=== PATIENT | female | born 1990 | race Caucasian/White ===

== ENCOUNTER 2016-06-05 20:59 | Inpatient (IN) | payer BC ==
[~2016-06-05] VITALS: Ht 162.6 cm; Wt 103.4 kg
[~2016-06-05 20:59] MED LIST: DICY10CA26 PO; KETO-22 PO; ONDAN4ODT PO
--- OUTSIDE RECORDS SUMMARY | 2016-06-05 21:03 | XMS REPORT ---
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
[2016-06-05 21:10] VITALS: BP 119/66
[2016-06-05] MEDS: D5 LR IV SOLUTION 1,000 ML IV SCH (22:11)
[2016-06-05 23:10] VITALS: BP 96/53
[2016-06-06] VITALS (45 sets, daily range): BP systolic 90–136; BP diastolic 51–84
[2016-06-06] MEDS: CATHETER FLUSH 10 ML SYR IV SCH ×3 (00:34→23:26)
[2016-06-06] MEDS: D5 LR IV SOLUTION 1,000 ML IV SCH ×3 (03:40→17:36)
[2016-06-06] MEDS ORDERED: D5 LR IV SOLUTION 1,000 ML IV SCH ×2 (07:26→19:03)
[2016-06-06] MEDS ORDERED: OXYTOCIN/NORMAL SALINE 500 ML IV SCH ×2 (07:26→18:14)
[2016-06-06 07:38] LABS: BASOPHILS % (AUTO) 0 % (0-10); EOSINOPHILS # (AUTO) 0.1 10^3/uL (0.0-0.3); EOSINOPHILS % (AUTO) 1 % (0-10); LYMPHOCYTES # (AUTO) 1.9 X 10^3 (1.0-4.0); LYMPHOCYTES % (AUTO) 19 % (12-44); MEAN CORPUSCULAR HEMOGLOBIN 33 PG (25-34); MEAN CORPUSCULAR HGB CONC 33 G/DL (32-36); MEAN CORPUSCULAR VOLUME 99 FL (80-99); MEAN PLATELET VOLUME 12.3 FL (7.4-10.4); MONOCYTES % (AUTO) 10 % (0-12); NEUTROPHILS # (AUTO) 6.9 X 10^3 (1.8-7.8); NEUTROPHILS % (AUTO) 70 % (42-75); PLATELET COUNT 207 10^3/uL (130-400); RED BLOOD COUNT 3.46 10^6/uL (4.35-5.85); RED CELL DISTRIBUTION WIDTH 12.5 % (10.0-14.5); WHITE BLOOD COUNT 9.8 10^3/uL (4.3-11.0)
--- NOTE | 2016-06-06 07:38 | History & Physical ---
History and Physical patient is a 24-year-old G1 white female with an EDC of 517 presented last evening reuben. She is reuben through the night. Her cervix is dilated from being closed to be 1 cm 30 percent effaced. She denies rupture membranes or bleeding patient had a negative GBS culture after 35 weeks gestation Allergies are to sulfa Medications are vitamins Past medical history, past surgical history, obstetric history, family history are per the antepartum record HEENT exam is normal Neck supple no lymphadenopathy no thyromegaly Abdomen is gravid soft nontender nondistended Extremities show clubbing cyanosis there is no Homans sign. Exam reveals a cervix once immune dilated 30 percent effaced -2 station with vertex presentation intact membranes. Membranes or ruptured artificially and scalp electrode is placed. monitor shows contractions every 4-5 minutes. There is normal heart rate pattern. Assessment and plan term in early labor. Amniotomy has been performed we will observe now and manage expectantly. Anticipation is for vaginal delivery although with the presenting part being adequate at relatively high station the potential for is elevated. Patient is aware of this. Plans are in place for if needed 40 week in labor Allergies and Home Medications Allergies Coded Allergies: Sulfa (Sulfonamide Antibiotics) (Unverified Allergy, Mild, 03/05/08) Home Medications Dicyclomine Hcl 10 Mg Capsule #20 1 EACH PO ACHS FOR STOMACH DISCOMFORT Prescribed by: GLEN WOODS on 10/10/091716 Ketorolac Tromethamine 10 Mg Tablet #15 10 MG PO Q6H PRN PRN FOR PAIN Prescribed by: GLEN WOODS on 10/10/09 1717 Ondansetron Hcl 4 Mg Tab #5 4 MG PO Q4H FOR NAUSEA AND VOMITING Prescribed by: GLEN WOODS on 10/05/09 0003 Ondansetron Hcl 4 Mg Tab #5 4 MG PO Q4H FOR NAUSEA AND VOMITING Prescribed by: GLEN WOODS on 10/10/09 1717 Clinical Quality Measures DVT/VTE Risk/Contraindication: Risk Factor Score Per Nursin RFS Level Per Nursing on Admit: 1=Low/No VTE PPX GAVINO HEWITT MD Jun 06, 2016 7:38 am
[2016-06-06] MEDS ORDERED: BUTORPHANOL INJ 2 MG/ML (STADOL) VIAL IV ONE ×2 (15:30→17:15)
[2016-06-06] MEDS ORDERED: LIDOCAINE/EPI 1%-1:200,000 (XYLOCAINE) 30 ML VIAL ONE (17:03)
[2016-06-06] MEDS ORDERED: KETOROLAC 30 MG/ML VIAL IV SCH (18:15)
[2016-06-06] MEDS ORDERED: BENZOCAINE/MENTHOL (DERMOPLAST) 56 ML CAN TP PRN (18:15)
[2016-06-06] MEDS ORDERED: TETANUS,DIPTH,PERTUSS P/F (BOOSTRIX) 0.5 ML VIAL IM ONE ×2 (18:15→19:15)
[2016-06-06] MEDS ORDERED: MEASLES,MUMPS,RUBELLA 1 EA INJ SC ONE ×2 (18:15→19:15)
[2016-06-06] MEDS ORDERED: oxyCODONE/APAP 10/325MG (PERCOCET 10) TABLET PO PRN (18:15)
[2016-06-06] MEDS ORDERED: TERBUTALINE INJ 1 MG/ML (BRETHINE) AMP ONE (18:43)
[2016-06-06] MEDS ORDERED: LACTATED RINGERS 1,000 ML IV ONE (18:45)
[2016-06-06] MEDS ORDERED: fentaNYL INJECTION 100 MCG/2 ML AMP ONE (18:56)
[2016-06-06] MEDS ORDERED: metroNIDAZOLE 500MG/100ML IVPB 100 ML ONE (18:57)
[2016-06-06] MEDS ORDERED: ceFAZolin 2 GM/50 ML NS 50 ML IV ONE (18:57)
[2016-06-06] MEDS ORDERED: ceFAZolin 2 GM/50 ML NS 50 ML IV NR (19:00)
[2016-06-06] MEDS ORDERED: D5 LR IV SOLUTION 1,000 ML IV ONE (19:09)
[2016-06-06] MEDS ORDERED: MEPERIDINE (DEMEROL) INJ 100 MG/ML IM PRN (19:15)
[2016-06-06] MEDS ORDERED: PROMETHAZINE INJ 25 MG/ML (PHENERGAN) AMP IM PRN (19:15)
[2016-06-06] MEDS ORDERED: metroNIDAZOLE 500MG/100ML IVPB 100 ML IV NR (19:15)
[2016-06-06] MEDS ORDERED: METHYLERGONOVINE 0.2 MG/ML (METHERGINE) AMP ONE ×2 (19:18→19:19)
[2016-06-06] MEDS ORDERED: OXYTOCIN/NORMAL SALINE 1,000 ML IV ONE (19:38)
[2016-06-06] MEDS ORDERED: TERBUTALINE INJ 1 MG/ML (BRETHINE) AMP SC NR (19:45)
[2016-06-06] MEDS: OXYTOCIN/NORMAL SALINE 500 ML IV SCH ×2 (20:39→23:15)
[2016-06-06] MEDS ORDERED: DOCUSATE SODIUM 100 MG (COLACE) CAP PO SCH (21:00)
[2016-06-06] MEDS: KETOROLAC 30 MG/ML VIAL IVP SCH (21:41)
[2016-06-06] MEDS: oxyCODONE/APAP 10/325MG (PERCOCET 10) TABLET PO PRN (22:47)
[2016-06-06] MEDS: DOCUSATE SODIUM 100 MG (COLACE) CAP PO SCH (22:48)
[2016-06-07] MEDS: CATHETER FLUSH 10 ML SYR IV SCH ×2 (01:48→05:40)
[2016-06-07 03:03] VITALS: BP 116/69
[2016-06-07] MEDS: KETOROLAC 30 MG/ML VIAL IVP SCH ×3 (03:03→13:15)
[2016-06-07] MEDS: oxyCODONE/APAP 10/325MG (PERCOCET 10) TABLET PO PRN ×3 (06:08→20:58)
--- NOTE | 2016-06-07 06:58 | Progress Note-Standard ---
Standard Progress Note Progress Notes/Assess & Plan Progress/Assessment & Plan this patient is without complaint. She is ambulating, voiding, tolerating by mouth well, has good pain control. Patient denies chest pain, denies shortness of breath, denies nausea vomiting, and denies headache. Vital Signs Date Time Temp Pulse Resp B/P Pulse Ox O2 Delivery O2 Flow Rate FiO2 06/07/16 03:03 98.4 77 18 116/69 96 Room Air 06/06/16 23:22 98.7 80 18 117/77 98 Room Air 06/06/16 18:55 70 18 124/71 06/06/16 18:30 64 20 136/80 06/06/16 18:15 66 20 131/72 06/06/16 18:00 75 20 133/83 06/06/16 17:45 98.4 70 20 119/66 06/06/16 17:30 72 20 128/77 06/06/16 17:15 72 20 127/75 06/06/16 17:00 73 20 119/75 06/06/16 16:45 68 18 113/59 06/06/16 16:30 68 18 113/59 06/06/16 16:15 72 18 119/84 06/06/16 16:00 75 18 116/79 06/06/16 15:45 75 18 110/64 06/06/16 15:30 66 18 107/56 06/06/16 15:15 70 20 124/71 06/06/16 15:00 69 20 107/55 06/06/16 14:45 64 20 106/54 06/06/16 14:30 81 20 121/80 06/06/16 14:15 68 20 99/53 06/06/16 14:00 75 20 131/64 06/06/16 13:45 73 20 124/69 06/06/16 13:30 67 20 123/67 06/06/16 13:15 75 20 122/82 06/06/16 13:00 71 20 129/80 06/06/16 12:45 76 20 123/76 06/06/16 12:30 98.9 65 20 129/77 06/06/16 12:15 72 20 112/71 06/06/16 12:00 69 20 118/66 06/06/16 11:45 76 20 128/71 06/06/16 11:30 70 20 123/79 06/06/16 11:15 73 20 119/80 06/06/16 11:00 69 20 119/71 06/06/16 10:45 74 20 110/64 06/06/16 10:30 76 20 121/71 06/06/16 10:15 74 20 112/67 06/06/16 10:00 66 20 118/69 06/06/16 09:45 72 20 97/56 06/06/16 09:30 63 20 90/52 06/06/16 09:15 69 18 100/58 06/06/16 09:00 64 18 94/51 06/06/16 08:45 70 20 113/68 06/06/16 08:25 99.5 71 20 114/67 I & O 06/07/16 07:00 Intake Total 4450 ml Output Total 350 ml Balance 4100 ml vital signs are stable. Patient afebrile. This is firm below the umbilicus and nontender. The incision is clean dry and intact. Extremities show no clubbing or cyanosis Homans sign. There is some pretibial pitting edema that is normal. Assessment and plan is operative day number 1 status post primary doing well. Plan is for routine convalescence care GAVINO HEWITT MD Jun 07, 2016 6:58 am
[2016-06-07] MEDS ORDERED: DOCU100C37 PO (07:32)
[2016-06-07] MEDS ORDERED: IBUP-1780 PO (07:32)
[2016-06-07] MEDS ORDERED: OXYC-465 PO (07:32)
--- NOTE | 2016-06-07 07:34 | Discharge Instructions ---
Discharge Instructions Discharge Medications New, Converted or Re-Newed RX: RX on Chart Patient Instructions Patient Instructions: as directed Return to The [facility]: as directed Activity & Diet Discharge Diet: No Restrictions Activity as Tolerated: No Orders-Post D/C & Referrals Follow Up Appt: RTC 1 week for incision check. Call to make follow up appt. for patient in 4 weeks. Wound Care: Remove juan, apply benzoin and steri strips. Activity Per routine post instructions. Diet as tolerated Patient may shower or tub bathe as desired. Continue home meds GAVINO HEWITT MD Jun 07, 2016 7:34 am
[2016-06-07] MEDS: DOCUSATE SODIUM 100 MG (COLACE) CAP PO SCH ×2 (08:46→20:58)
[2016-06-07 08:48] VITALS: BP 98/68
[2016-06-07 12:43] VITALS: BP 96/65
[2016-06-07 16:00] VITALS: BP 107/72
[2016-06-07] MEDS: IBUPROFEN 800 MG (MOTRIN) TAB PO SCH ×2 (16:00→21:02)
[2016-06-07] MEDS ORDERED: IBUPROFEN 800 MG (MOTRIN) TAB PO SCH (18:15)
[2016-06-07 21:00] VITALS: BP 107/72
[2016-06-08 03:22] VITALS: BP 116/79
[2016-06-08] MEDS: oxyCODONE/APAP 10/325MG (PERCOCET 10) TABLET PO PRN (03:22)
[2016-06-08] MEDS: IBUPROFEN 800 MG (MOTRIN) TAB PO SCH ×3 (03:22→15:12)
--- NOTE | 2016-06-08 07:34 | Progress Note-Standard ---
Standard Progress Note Progress Notes/Assess & Plan Progress/Assessment & Plan this patient is without complaint. She is ambulating, voiding, tolerating by mouth well, has good pain control. Patient denies chest pain, denies shortness of breath, denies nausea vomiting, and denies headache. Vital Signs Date Time Temp Pulse Resp B/P Pulse Ox O2 Delivery O2 Flow Rate FiO2 06/07/16 03:03 98.4 77 18 116/69 96 Room Air 06/06/16 23:22 98.7 80 18 117/77 98 Room Air 06/06/16 18:55 70 18 124/71 06/06/16 18:30 64 20 136/80 06/06/16 18:15 66 20 131/72 06/06/16 18:00 75 20 133/83 06/06/16 17:45 98.4 70 20 119/66 06/06/16 17:30 72 20 128/77 06/06/16 17:15 72 20 127/75 06/06/16 17:00 73 20 119/75 06/06/16 16:45 68 18 113/59 06/06/16 16:30 68 18 113/59 06/06/16 16:15 72 18 119/84 06/06/16 16:00 75 18 116/79 06/06/16 15:45 75 18 110/64 06/06/16 15:30 66 18 107/56 06/06/16 15:15 70 20 124/71 06/06/16 15:00 69 20 107/55 06/06/16 14:45 64 20 106/54 06/06/16 14:30 81 20 121/80 06/06/16 14:15 68 20 99/53 06/06/16 14:00 75 20 131/64 06/06/16 13:45 73 20 124/69 06/06/16 13:30 67 20 123/67 06/06/16 13:15 75 20 122/82 06/06/16 13:00 71 20 129/80 06/06/16 12:45 76 20 123/76 06/06/16 12:30 98.9 65 20 129/77 06/06/16 12:15 72 20 112/71 06/06/16 12:00 69 20 118/66 06/06/16 11:45 76 20 128/71 06/06/16 11:30 70 20 123/79 06/06/16 11:15 73 20 119/80 06/06/16 11:00 69 20 119/71 06/06/16 10:45 74 20 110/64 06/06/16 10:30 76 20 121/71 06/06/16 10:15 74 20 112/67 06/06/16 10:00 66 20 118/69 06/06/16 09:45 72 20 97/56 06/06/16 09:30 63 20 90/52 06/06/16 09:15 69 18 100/58 06/06/16 09:00 64 18 94/51 06/06/16 08:45 70 20 113/68 06/06/16 08:25 99.5 71 20 114/67 I & O 06/07/16 07:00 Intake Total 4450 ml Output Total 350 ml Balance 4100 ml vital signs are stable. Patient afebrile. This is firm below the umbilicus and nontender. The incision is clean dry and intact. Extremities show no clubbing or cyanosis Homans sign. There is some pretibial pitting edema that is normal. Assessment and plan is operative day number 1 status post primary doing well. Plan is for routine convalescence care June 08, 2016 Patient is without complaint. She is ambulating, voiding, tolerating fairly well, has good pain control, is requesting discharge home. Vital Signs Date Time Temp Pulse Resp B/P Pulse Ox O2 Delivery O2 Flow Rate FiO2 06/08/16 03:22 98.3 85 18 116/79 98 Room Air 06/07/16 21:00 97.8 72 18 107/72 98 Room Air 06/07/16 16:00 97.6 104 18 107/72 96 Room Air 06/07/16 12:43 98.6 100 18 96/65 97 Room Air 06/07/16 08:48 98.8 80 18 98/68 96 Room Air I & O 06/08/16 07:00 Intake Total 2520 ml Output Total 1350 ml Balance 1170 ml vital signs are stable. Patient is afebrile. Fundus is firm below the umbilicus and nontender. The incision is clean dry and intact. Extremities show no clubbing cyanosis. There is no Homans sign. There is some pretibial pitting edema that is normal Assessment and plan postoperative day number 2 status post primary doing well. Plan is for discharge home with follow-up in clinic. Final Diagnosis 40 week with primary GAVINO HEWITT MD Jun 08, 2016 7:34 am
[2016-06-08 07:41] VITALS: BP 103/74
[2016-06-08] MEDS: DOCUSATE SODIUM 100 MG (COLACE) CAP PO SCH (09:44)
--- NOTE | 2016-06-08 09:45 | OPERATIVE REPORT ---
PROCEDURE PHYSICIAN: GAVINO HEWITT DATE OF PROCEDURE: 06/06/2016 DATE OF DICTATION: 06/06/2016 PREOPERATIVE DIAGNOSIS: Term at 40 weeks gestation in labor with bradycardia POSTOPERATIVE DIAGNOSIS: Term at 40 weeks gestation in labor with bradycardia with occult nuchal cord and persistent OP position. OPERATIVE PROCEDURE: Primary low transverse delivery. OPERATIVE INDICATION: The patient had labored to 10 cm dilated, was allowed to push. After one push the baby's heart rate which had been in the normal range dropped to 70s to 80s. After 10 minutes without responding to positioning, maternal oxygen, stopping the Pitocin and scalp stimulation, the decision was made to proceed with emergent delivery. The patient was taken to the operating room and crews were called. In the operating room check a heart rate showed return to the 120s to 130 range. The decision was made to allow a spinal which was placed and then the delivery proceeded promptly. Under satisfactory spinal anesthesia, the patient was prepped and draped usual fashion for abdominal surgery. Pollack cath was placed in the urinary bladder and left to dependent drainage. A Pfannenstiel incision made through the skin with scalpel. The patient's abdomen entered in the usual manner. Bladder retractor placed in position, clean scalpel used to make a 4 cm hysterotomy incision transversely across lower uterine segment that was extended by blunt dissection as well. A viable female was delivered via the uterine incision from a straight OP position. The was bulb suctioned on delivery of the head and again on completion of delivery. There was an occult cord down past the shoulder and down beside the baby's head. This was released on elevation of the baby's head. The was bulb suctioned on delivery of the head and again on completion of delivery. The cord was doubly clamped and cut and the passed to the pediatric nurse in attendance for delivery. Cord bloods were obtained including a blood gas that they came back with pH value of 7.2. The placenta delivered spontaneously Massey. It was normal with three-vessel cord. The uterus was exteriorized, interior wiped clean with a wet laparotomy sponge. Uterine incision then closed with running locked suture of 2-0 Vicryl. The uterus was quite atonic responding only minimally to IV Pitocin. The patient was given a dose of Methergine and a modified B-Yarbrough suture was placed using 2-0 chromic sutures. This compressed the uterus nicely and controlled the blood loss. The uterus was now returned to the abdominal cavity. All blood clot and debris removed from the abdominal cavity. With sponge and needle counts correct and hemostasis assured, the anterior parietal peritoneum was closed running suture of 2-0 Vicryl. The rectus muscles were closed with 2-0 Vicryl as well. The rectus fascia was closed with 2-0 Vicryl. Subcutaneous tissue was closed with 2-0 Vicryl and the skin was stapled. Sponge and needle counts were correct at the end of the procedure. Estimated blood loss was around 400 mL. The patient tolerated the procedure well and was transferred to recovery room in stable condition. The infant had remained in the room and remained with the mom. Job ID: [id number] Dictated Date: 06/06/2016 19:48:26 Hand Bootmaker Date: 06/08/2016 09:36:51 / mary
[2016-06-08 14:00] VITALS: BP 104/79
== END 2016-06-08 16:10 | disposition home or self-care (01) | DRG 766 ==
LOC: WSo 20:59 → LDRP 21:00 → WSo 06-06 07:18 → LDRP 06-06 07:19
PROVIDERS: ADMIT Obstetrics & Gynecology; ATTEND Obstetrics & Gynecology
PROC: 10D00Z1 Extraction of Products of Conception, Low, Open Approach (ICD-10-PCS; principal; 2016-06-06 19:00)
DX: O64.0XX0 Obstructed labor due to incomplete rotation of fetal head, not applicable or unspecified (principal); O76 Abnormality in fetal heart rate and rhythm complicating labor and delivery; O69.81X0 Labor and delivery complicated by cord around neck, without compression, not applicable or unspecified; Z37.0 Single live birth; Z3A.40 40 weeks gestation of pregnancy
CPT/HCPCS: 36415; 85025; 86850; 86900; 86901; 94664; 99212

== ENCOUNTER → 2020-10-09 | Outpatient (CLI) | payer BC ==
[~2020-10-09] MED LIST changes: +DOCU100C37 PO; +IBUP-1780 PO; +OXYC-556 PO
--- NOTE | 2020-10-09 15:45 | Diagnostic Imaging Report ---
INDICATION: Left neck swelling, neck mass. TECHNIQUE: Multiple real time titus scale sonographic images were obtained of the soft tissue of the neck. CORRELATION STUDY: None. FINDINGS: Imaging performed of the neck. Initial imaging was performed of the region of the left segment of the gland, generally unremarkable. Slightly inferior to this, what appeared to be two mildly prominent cervical lymph nodes. Echogenic fatty hilum is present. The more superior one measures 0.3 x 0.6 x 1.2 cm. Slightly more inferior one measures 2.2 x 0.8 x 0.8 cm. IMPRESSION: Two mildly prominent, nonspecific, left-sided cervical lymph nodes. Dictated by: Dictated on workstation # [id number]
== END ==
LOC: RAD 12:30
PROVIDERS: ATTEND Family Medicine
DX: R22.1 Localized swelling, mass and lump, neck (principal)
CPT/HCPCS: 76536